=== PATIENT | female | born 1930 | race Caucasian/White ===

== ENCOUNTER 2017-05-03 10:51 | Inpatient (IN) | payer MEDICARE, OTHER ==
[~2017-05-03] VITALS: Ht 160 cm; Wt 75.0 kg
[~2017-05-03 10:51] MED LIST: ASPI-1094 PO; ATOR20TA PO; CALC-793 PO; CYAN100T12 PO; LOP25T PO; MULT-1085 PO; TRAM50TA2 PO; VITC500T PO
[2017-05-03 11:59] LABS: BASOPHILS # (AUTO) 0.1 X10'3 (0-0.2); EOSINOPHILS # (AUTO) 0.1 X10'3 (0-0.9); EOSINOPHILS % (AUTO) 1.2 % (0-6); HEMATOCRIT 39.2 % (35.0-45.0); HEMOGLOBIN 13.5 g/dl (12.0-16.0); LYMPHOCYTES # (AUTO) 1.1 X10'3 (1.1-4.8); LYMPHOCYTES % (AUTO) 15.9 % (21-51); MEAN CORPUSCULAR HEMOGLOBIN 31.4 PG (27.0-31.0); MEAN CORPUSCULAR HGB CONC 34.4 % (33.0-36.5); MEAN CORPUSCULAR VOLUME 91.5 FL (78-98); MEAN PLATELET VOLUME 7.4 FL (7.4-10.4); MONOCYTES # (AUTO) 0.4 X10'3 (0-0.9); MONOCYTES % (AUTO) 6.3 % (2-12); NEUTROPHILS # (AUTO) 5.1 X10'3 (1.8-7.7); NEUTROPHILS % (AUTO) 75.6 % (42-75); PLATELET COUNT 313 X10'3 (140-440); RED BLOOD COUNT 4.28 X10'6 (4.20-5.60); RED CELL DISTRIBUTION WIDTH 13.1 % (11.5-14.5); WHITE BLOOD COUNT 6.7 X10'3 (4.5-11.0)
[2017-05-03 12:12] LABS: PARTIAL THROMBOPLASTIN TIME 22 SECONDS (22-32)
[2017-05-03 12:18] LABS: ALANINE AMINOTRANSFERASE 33 U/L (12-78); ALBUMIN 3.7 G/DL (3.4-5.0); ALBUMIN/GLOBULIN RATIO 1.1 (1.1-1.5); ALKALINE PHOSPHATASE 77 IU/L (46-116); ANION GAP 6 (8-16); ASPARTATE AMINO TRANSFERASE 21 U/L (10-37); BILIRUBIN,TOTAL 0.4 MG/DL (0.1-1.0); BLOOD UREA NITROGEN 26 MG/DL (7-18); BUN/CREATININE RATIO 23.6 (6.6-38.0); CALCIUM 9.6 MG/DL (8.5-10.1); CHLORIDE 107 MMOL/L (99-107); GLUCOSE 138 MG/DL (70-104); POTASSIUM 4.4 MMOL/L (3.5-5.1); SODIUM 143 MMOL/L (135-145); TOTAL CARBON DIOXIDE 30.2 MMOL/L (24-32); eGFR 47 ML/MIN
[2017-05-03 12:34] LABS: CLARITY,URINE SLIGHTLY CLOUDY (Clear); COLOR,URINE YELLOW (Yellow); GLUCOSE, URINE NEGATIVE (Neg); KETONES,URINE TRACE mg/dl (Neg); LEUKOCYTE ESTERASE ,URINE NEGATIVE (Neg); NITRITES, URINE NEGATIVE (Neg); OCCULT BLOOD,URINE NEGATIVE (Neg); PROTEIN,URINE 30 mg/dl (Neg)
[2017-05-03 12:48] LABS: UA COLLECTION TYPE CLN CATCH MIDSTREAM
[2017-05-03 12:50] LABS: BACTERIA,URINE NONE SEEN /HPF (Neg); RBC,URINE NONE SEEN /HPF (0-2); SQUAMOUS EPITHELIAL CELL,UR FEW /LPF (FEW); WBC,URINE NONE SEEN /HPF (0-4)
[2017-05-03 12:51] LABS: HYALINE CASTS 0-3 /LPF (NEGATIVE)
[2017-05-03] MEDS ORDERED: magnesium 2GM in 50ml NS 50 ML IV PRN (13:25)
[2017-05-03] MEDS ORDERED: potassium Cl 40MEQ/NS 500ml 500 ML IV PRN ×2 (13:25)
[2017-05-03] MEDS ORDERED: mag hydrox/Alum hydrox/simeth 30ml oral suspension PO PRN (13:25)
[2017-05-03] MEDS ORDERED: acetaminophen 325mg tablet PO PRN (13:25)
[2017-05-03] MEDS ORDERED: magnesium 4gm in 100ml NS 100 ML IV PRN (13:25)
[2017-05-03] MEDS ORDERED: potassium Cl 20 mEq SR tablet PO PRN ×2 (13:25)
[2017-05-03] MEDS ORDERED: bisacodyl 10mg suppository rectal RC PRN (13:25)
[2017-05-03] MEDS ORDERED: magnesium hydroxide 30ml (MOM) UD suspension PO PRN (13:25)
[2017-05-03] MEDS ORDERED: magnesium Cl slow-release 64mg tablet PO PRN (13:25)
[2017-05-03] MEDS ORDERED: ondansetron/PF 4mg/2ml inj IV PRN (13:25)
[2017-05-03] MEDS: normal saline 1000ml 1,000 ML IV SCH (13:41)
[2017-05-03 15:00] VITALS: BP 150/68
[2017-05-03 18:00] VITALS: BP 124/68
[2017-05-03 20:00] VITALS: BP_SYST 124; BP_SYST 148; BP_SYST 167; BP_DIAS 67; BP_DIAS 72; BP_DIAS 85
[2017-05-03] MEDS: docusate sod 100mg capsule PO SCH (20:00)
[2017-05-03] MEDS ORDERED: atorvastatin 20mg tablet PO SCH (21:00)
[2017-05-03 22:00] VITALS: BP 124/67
[2017-05-04] MEDS: normal saline 1000ml 1,000 ML IV SCH (01:55)
[2017-05-04 05:00] VITALS: BP 159/72
[2017-05-04 06:28] LABS: BASOPHILS % (AUTO) 0.5 % (0-1); EOSINOPHILS # (AUTO) 0.2 X10'3 (0-0.9); EOSINOPHILS % (AUTO) 2.7 % (0-6); HEMATOCRIT 37.1 % (35.0-45.0); HEMOGLOBIN 12.7 g/dl (12.0-16.0); LYMPHOCYTES # (AUTO) 2.4 X10'3 (1.1-4.8); LYMPHOCYTES % (AUTO) 35.7 % (21-51); MEAN CORPUSCULAR HEMOGLOBIN 31.2 PG (27.0-31.0); MEAN CORPUSCULAR HGB CONC 34.3 % (33.0-36.5); MEAN PLATELET VOLUME 7.6 FL (7.4-10.4); MONOCYTES # (AUTO) 0.6 X10'3 (0-0.9); MONOCYTES % (AUTO) 8.8 % (2-12); NEUTROPHILS # (AUTO) 3.6 X10'3 (1.8-7.7); NEUTROPHILS % (AUTO) 52.3 % (42-75); PLATELET COUNT 297 X10'3 (140-440); RED BLOOD COUNT 4.08 X10'6 (4.20-5.60); RED CELL DISTRIBUTION WIDTH 13.6 % (11.5-14.5); WHITE BLOOD COUNT 6.9 X10'3 (4.5-11.0)
[2017-05-04 06:51] LABS: ALBUMIN 3.3 G/DL (3.4-5.0); ANION GAP 7 (8-16); BLOOD UREA NITROGEN 25 MG/DL (7-18); BUN/CREATININE RATIO 22.7 (6.6-38.0); CALCIUM 8.7 MG/DL (8.5-10.1); CHLORIDE 108 MMOL/L (99-107); CHOL/HDL RATIO 1.8 (0.00-4.99); CHOLESTEROL 165 MG/DL (0-200); GLUCOSE 95 MG/DL (70-104); HDL CHOLESTEROL 94 MG/DL (35-60); LDL CHOLESTEROL 71 MG/DL (50-100); POTASSIUM 4.2 MMOL/L (3.5-5.1); SODIUM 143 MMOL/L (135-145); TOTAL CARBON DIOXIDE 28.1 MMOL/L (24-32); TRIGLYCERIDES 43 MG/DL (20-135); eGFR 47 ML/MIN
[2017-05-04 07:00] VITALS: BP_SYST 166; BP_SYST 178; BP_SYST 180; BP_DIAS 73; BP_DIAS 86; BP_DIAS 91
[2017-05-04] MEDS: docusate sod 100mg capsule PO SCH (07:46)
[2017-05-04] MEDS ORDERED: ascorbic acid 500mg tablet PO SCH (08:00)
[2017-05-04] MEDS ORDERED: non-formulary drug (Multivitamin (Multi Vitamin Daily) 1 EACH) PO SCH (08:00)
[2017-05-04] MEDS ORDERED: multivitamins, therapeutics tablet PO SCH (08:00)
[2017-05-04] MEDS ORDERED: K and/or MAG REPLACEMENT MC SCH (08:00)
[2017-05-04] MEDS ORDERED: cyanocobalamin 500mcg tablet PO SCH (08:00)
[2017-05-04] MEDS ORDERED: metoprolol tartrate 25mg tablet PO SCH (08:00)
[2017-05-04] MEDS ORDERED: aspirin 81mg tablet.DR PO SCH (08:00)
[2017-05-04 10:00] VITALS: BP 123/63
== END 2017-05-04 13:34 | disposition home or self-care (01) | DRG 312 ==
LOC: ER 10:51 → ED HOLD 12:54 → ORTHO 4S 15:00
PROVIDERS: ADMIT Internal Medicine; ATTEND Internal Medicine
DX: R55 Syncope and collapse (principal); G62.9 Polyneuropathy, unspecified; E86.0 Dehydration; I34.1 Nonrheumatic mitral (valve) prolapse; E78.00 Pure hypercholesterolemia, unspecified; E78.5 Hyperlipidemia, unspecified; M19.90 Unspecified osteoarthritis, unspecified site; I10 Essential (primary) hypertension; I25.10 Atherosclerotic heart disease of native coronary artery without angina pectoris; Z85.820 Personal history of malignant melanoma of skin; Z91.81 History of falling; Z79.82 Long term (current) use of aspirin; Z79.899 Other long term (current) drug therapy
CPT/HCPCS: 36415; 70450; 71045; 80048; 80053; 80061; 81001; 83735; 84484; 85025; 85610; 85730; 87070; 93005; 93306; 93880; 97116; 97162; 97530; 99285; J7030

== ENCOUNTER 2018-04-14 10:11 | Emergency (ER) | payer MEDICARE ==
[~2018-04-14] VITALS: Ht 161.9 cm; Wt 72.7 kg
[~2018-04-14 10:11] MED LIST changes: -CALC-793 PO; -TRAM50TA2 PO
[2018-04-14 10:39] LABS: BASOPHILS % (AUTO) 0.2 % (0-1); EOSINOPHILS % (AUTO) 0.5 % (0-6); HEMATOCRIT 37.7 % (35.0-45.0); HEMOGLOBIN 12.6 g/dl (12.0-16.0); LYMPHOCYTES # (AUTO) 1.1 X10'3 (1.1-4.8); LYMPHOCYTES % (AUTO) 21.5 % (21-51); MEAN CORPUSCULAR HEMOGLOBIN 30.9 PG (27.0-31.0); MEAN CORPUSCULAR HGB CONC 33.5 % (33.0-36.5); MEAN CORPUSCULAR VOLUME 92.3 FL (78-98); MEAN PLATELET VOLUME 7.3 FL (7.4-10.4); MONOCYTES # (AUTO) 0.4 X10'3 (0-0.9); MONOCYTES % (AUTO) 7.7 % (2-12); NEUTROPHILS # (AUTO) 3.6 X10'3 (1.8-7.7); NEUTROPHILS % (AUTO) 70.1 % (42-75); PLATELET COUNT 332 X10'3 (140-440); RED BLOOD COUNT 4.09 X10'6 (4.20-5.60); RED CELL DISTRIBUTION WIDTH 13.3 % (11.5-14.5); WHITE BLOOD COUNT 5.1 X10'3 (4.5-11.0)
[2018-04-14 10:54] LABS: ALANINE AMINOTRANSFERASE 31 U/L (12-78); ALBUMIN 3.2 G/DL (3.4-5.0); ALKALINE PHOSPHATASE 72 IU/L (46-116); ANION GAP 10 (8-16); ASPARTATE AMINO TRANSFERASE 28 U/L (10-37); BILIRUBIN,TOTAL 0.3 MG/DL (0.1-1.0); BLOOD UREA NITROGEN 29 MG/DL (7-18); BUN/CREATININE RATIO 27.4 (6.6-38.0); CALCIUM 8.6 MG/DL (8.5-10.1); CHLORIDE 106 MMOL/L (99-107); CREATININE 1.06 MG/DL (0.40-0.90); GLUCOSE 146 MG/DL (70-104); POTASSIUM 4.1 MMOL/L (3.5-5.1); SODIUM 142 MMOL/L (135-145); TOTAL CARBON DIOXIDE 25.8 MMOL/L (24-32); TOTAL PROTEIN 6.4 G/DL (6.4-8.2); eGFR 49 ML/MIN
[2018-04-14 11:02] LABS: MAGNESIUM 2.1 MG/DL (1.5-2.4)
[2018-04-14 12:20] VITALS: BP 152/69
== END 2018-04-14 12:22 | disposition home or self-care (01) ==
LOC: ER 10:12
DX: R55 Syncope and collapse (principal); E86.0 Dehydration; E78.00 Pure hypercholesterolemia, unspecified; I10 Essential (primary) hypertension; Z98.890 Other specified postprocedural states; Z79.82 Long term (current) use of aspirin; Z79.899 Other long term (current) drug therapy
CPT/HCPCS: 36415; 71045; 80053; 83735; 83880; 84484; 85025; 93005; 99284

== ENCOUNTER 2020-03-23 12:17 | Emergency (ER) | payer MEDICARE, MEDICAID ==
[~2020-03-23] VITALS: Ht 91.4 cm; Wt 70.0 kg
--- NOTE | 2020-03-23 14:14 | NUR ---
discussed observation of pt's leg w/ PA Richardson;new order for ankle xray received.
--- NOTE | 2020-03-23 14:25 | NUR ---
Pt gave verbal permission to update son, which was done. He communicated notable frustration that pt was not ready for dc @ this time. Explained the nature of an ER, without positive effect.
[2020-03-23] MEDS ORDERED: TETanus/Pertussis (Acell)/Diphther VAC/PF (Tdap-Adult) 0.5ml syringe IMVAC ONE (14:50)
--- NOTE | 2020-03-23 15:38 | NUR ---
Pt called about mother's status. UPdated once again. He communicated continued frustration that pt was not ready for dc @ this time. Reiterated the nature of ER care, again without positive effect.
[2020-03-23 15:46] VITALS: BP 112/64
--- NOTE | 2020-03-23 16:30 | NUR ---
Left messge on son Won's phone ([phone]) to communicate pt ready for dc as there was no answer. Direct ER number provided. Pt placed in lobby, in wheelchair being provided for home use.
== END 2020-03-23 16:38 | disposition home or self-care (01) ==
LOC: ER 12:18
DX: S82.891A Other fracture of right lower leg, initial encounter for closed fracture (principal); E78.00 Pure hypercholesterolemia, unspecified; I10 Essential (primary) hypertension; Z85.9 Personal history of malignant neoplasm, unspecified; Z98.890 Other specified postprocedural states; Z79.82 Long term (current) use of aspirin; Z79.899 Other long term (current) drug therapy; W18.39XA Other fall on same level, initial encounter; Z91.81 History of falling; Y93.89 Activity, other specified; Y92.89 Other specified places as the place of occurrence of the external cause; Y99.8 Other external cause status
CPT/HCPCS: 73610; 90471; 90715; 99284